=== PATIENT | male | born 2000 | race Caucasian/White ===

== ENCOUNTER 2024-02-12 16:08 | Outpatient (CLI) | payer OTHER, SELFPAY ==
--- NOTE | 2024-02-12 16:15 | XR_ITS ---
WS: [id number] XR hand RT 2V [id number] REASON FOR EXAM: ARTHRITIS FINDINGS: Old healed fracture at the base of the fifth metatarsal. No acute fracture or focal bone lesion. No periarticular bone erosion or periostitis. No periosteal reaction. Joint spaces in the right hand are intact and well preserved. XR/XR hand RT 2V [id number] IMPRESSION: Old healed fracture without significant deformity or posttraumatic arthritis. No other significant abnormality.
--- NOTE | 2024-02-12 16:15 | XR_ITS ---
WS: [id number] XR hand LT 2V [id number] REASON FOR EXAM: ARTHRITIS FINDINGS: No fracture or focal bone lesion. No periarticular erosions or periostitis. No periosteal reaction. Joint spaces of the left hand are intact and well preserved. No soft tissue abnormality. XR/XR hand LT 2V [id number] IMPRESSION: No significant abnormality.
== END 2024-02-12 16:09 | disposition home or self-care (01) ==
LOC: RAD 16:13
PROVIDERS: Family Provider General Practice; Visit Provider Chiropractor
DX: M19.041 Primary osteoarthritis, right hand (principal); M19.042 Primary osteoarthritis, left hand
CPT/HCPCS: 73120

== ENCOUNTER 2024-02-25 15:53 | Outpatient (CLI) | payer OTHER, SELFPAY ==
--- NOTE | 2024-02-25 16:03 | XRR_ITS ---
PROCEDURE INFORMATION: Exam: XR Lumbosacral Spine Exam date and time: 02/25/2024 4:11 PM Age: 23 years old Clinical indication: Low back pain; Additional info: Bilateral knee degenertive arthritis TECHNIQUE: Imaging protocol: Radiologic exam of the lumbosacral spine. Views: 2 or 3 views. COMPARISON: No relevant prior studies available. FINDINGS: Bones/joints: Slight loss of L4-L5 disc height with preservation of the remaining lumbar disc and vertebral body heights. Soft tissues: Unremarkable. XR/XR lumbar spine 2-3V* [id number] IMPRESSION: Unremarkable study
--- NOTE | 2024-02-25 16:05 | XRR_ITS ---
PROCEDURE INFORMATION: Exam: XR Right Knee Exam date and time: 02/25/2024 4:11 PM Age: 23 years old Clinical indication: Pain; Knee; Bilateral; Additional info: Bilateral knee degenerative arthritis TECHNIQUE: Imaging protocol: Radiologic exam of the right knee. Views: 3 views. COMPARISON: No relevant prior studies available. FINDINGS: Bones/joints: Normal. Soft tissues: Normal. XR/XR knee RT 3V* [id number] IMPRESSION: No acute findings.
--- NOTE | 2024-02-25 16:05 | XRR_ITS ---
PROCEDURE INFORMATION: Exam: XR Left Knee Exam date and time: 02/25/2024 4:11 PM Age: 23 years old Clinical indication: Pain; Knee; Bilateral; Additional info: Bilateral knee degenerative arthritis TECHNIQUE: Imaging protocol: Radiologic exam of the left knee. Views: 3 views. COMPARISON: No relevant prior studies available. FINDINGS: Bones/joints: Normal. Soft tissues: Normal. XR/XR knee LT 3V* [id number] IMPRESSION: No acute findings.
== END 2024-02-25 15:54 | disposition home or self-care (01) ==
LOC: RAD 15:57
PROVIDERS: Family Provider General Practice; Visit Provider Chiropractor
DX: M17.0 Bilateral primary osteoarthritis of knee (principal); M54.15 Radiculopathy, thoracolumbar region
CPT/HCPCS: 72100; 73562

== ENCOUNTER → 2024-08-06 15:17 | Outpatient (BNVA) | payer OTHER, SELFPAY | PROVIDERS: Family Provider General Practice; Visit Provider Student in an Organized Health Care Education/Training Program | DX: R20.2 Paresthesia of skin (principal); M79.601 Pain in right arm; M79.602 Pain in left arm; R29.898 Other symptoms and signs involving the musculoskeletal system | CPT/HCPCS: 99204 ==

== ENCOUNTER → 2024-09-23 08:37 | Outpatient (BNVA) | payer OTHER, SELFPAY | PROVIDERS: Family Provider General Practice; Referring Provider Student in an Organized Health Care Education/Training Program; Visit Provider Specialist | DX: R29.898 Other symptoms and signs involving the musculoskeletal system (principal); R20.2 Paresthesia of skin; M79.601 Pain in right arm; M79.602 Pain in left arm | CPT/HCPCS: 95911 ==

== ENCOUNTER 2024-12-30 17:29 | Emergency (ER) | payer OTHER, SELFPAY ==
--- OUTSIDE RECORDS SUMMARY | 2024-12-30 10:24 | XMS_ITS | Encounter Summary ---
Author Name [facility] Address [address] [place] [address] Care Team Providers Care Refractory Specialist Name Role Phone MARICEL BELL Primary Care Provider Unavail able Selected Encounter This section includes the information on record at [place] for the Encounter. Date/Time Encounter Type Encounter Description Reason Pro vider Source Dec 30, 2024 03:24 PM Outpatient Encounter [facility]ITY CARE CONSULT IHE Encounter Template Text not used by [place] Plan of Treatment: Future Appointments (+ 6 months) and Future Tests (+/- 45 days) The Plan of Treatment section includes future care activities for the patient from all [place] treatmentfacilities. This section includes future appointments and future orders which are active, pending or scheduled. Future Appointments This section includes appointments that were scheduled to occur 6 months from the date of the Encounter, up to a maximum of 20 appointments. The data comes from all [place] treatment facilities. Appointment Date/Time Appointment Type Appointme nt Facility Name Jun 25, 2025 08:30 AM AMBULATORY - MEDICINE [facility] Active, Pending, and Scheduled Orders This section includes a listing of several types of active, pending, and scheduled orders, including clinic medications orders, diagnostic test orders, procedure orders and consult orders; where the start date of the order is 45 days before the date of the Encounter or 45 days after the date of theEncounter. The data comes from all [place] treatment facilities. Test Date/Time Test Type Test Details Facility Name Dec 15, 2024 03:09 PM Consult Order COMM[facility]ITY CARE-CARDIOLOGY [id number] [facility] Dec 22, 2024 10:12 AM Consult Order COMMUNITY CARE-IMAGING MAGNETIC RESONANCE IMAGING-AUTO [id number] [facility] Dec 22, 2024 10:12 AM Consult Order COMMUNITY CARE-IMAGING MAGNETIC RESONANCE IMAGING-AUTO [id number] [facility] Lab Results: +/- 30 days of the encounter This section includes the Chemistry and Hematology Lab Results on record with [place] for the patient. Radiology Reports and Pathology Reports are provided separately, in subsequent sections. Lab Results This section contains the Chemistry/Hematology Results that were resulted 30 days before or 30 daysafter the date of the Encounter. Date/Time Source Result Type Result - Unit Interpretation Reference Range Specimen Type Comment Dec 15, 2024 03:27 PM [facility] COMPREHENSIVE METABOLIC PANEL PLASMA Specimen Type: PLASMA No comment entered. Ordering Provider: PATRICK BELL Report Released Date/Time: Dec 15, 2024 03:09 PM Reporting Lab: [place] [facility] [address] [place] [address] Performing Lab: [place] [facility] [address] [facility] [address] CREATININE 0.93 mg/dL 0.7-1.3 UREA NITROGEN 11 mg/dL 9-25 GLUCOSE 90 mg/dL 72-99 SODIUM 142 meq/L 136-145 POTASSIUM 4.2 meq/L 3.5-5 CHLORIDE 102 meq/L 98-107 CARBON DIOXIDE 27 meq/L 22-31 CALCIUM 9.6 mg/dL 8.4-10.4 PROTEIN 8.8 g/dL H 6-8.6 ALBUMIN 5.1 g/dL H 3.4-5 TOTAL BILIRUBIN 0.6 mg/dL 0.2-1.2 ALKALINE PHOSPHATASE 61 U/L 40-150 AST/SGOT 29 U/L 5-34 ALT/SGPT 22 U/L 8-40 EGFR (CKD-EPI 2020) 117 Dec 15, 2024 03:27 PM [facility] TSH (MA-PB) SERUM Specimen Typ e: SERUM No comment entered. Ordering Provider: MARICEL BELL Report Released Date/Time: Dec 15, 2024 03:15 PM Reporting Lab: [place] [facility] [address] [place] [address] Performing Lab: [place] [facility] [address] [place] [address] TSH 2.997 u[IU]/mL 0.47-5 Dec 15, 2024 03:27 PM [facility] B12 SERUM Specimen Type: SERUM No comment entered. Ordering Provider: MARICEL BELL Report Released Date/Time: Dec 15, 2024 03:15 PM Reporting Lab: [place] [facility] [address] [place] [address] Performing Lab: [place] [facility] [address] [place] [address] B12 281 pg/mL 213-816 Encounter Notes: All associated encounter notes This section contains the clinical notes associated to the Encounter. Date/Time Encounter Note(s) Provider Source Dec 30, 2024 03:24 PM LETTERS: LOCAL TITLE: COMMUNITY CARE-REFERRAL PB (AUTO-PRINT) STANDARD TITLE: LETTERS DATE OF NOTE: DEC 30, 2024@15:24:09 ENTRY DATE: DEC 30, 2024@15:24:09 AUTHOR: LUIS DANIELSON EXP COSIGNER: URGENCY: STATUS: COMPLETED Ankur Lomax [address] [place], [place] [address] Dear ANKUR LOMAX, Your [place] provider has referred you to a provider within the community for care. Your medical care for CARDIOLOGY has been authorized with the Community Care Provider listed below. DO NOT REPORT TO THE [facility] Provider info: An appointment has been scheduled for you on: Dec 26, 2024 03:23 PM Office Name: [facility] Address: [address] [place] [address] Address: [facility] Auth #: [id number] Referral Issue Date: 12/16/24 Expiration Date: 02/24/25 If you are unable to keep this appointment or the appointment is no longer needed, please contact the community provider above for notification/rescheduling and then call the [facility] [place] Community Care Office at [phone] Ext [phone]. If you need additional care/services not mentioned above, please contact your primary care provider for a new referral. Co-Payments: If you are required to pay a VA co-payment, you will be billed by the VA for each authorized visit that you attend. However, you are NOT REQUIRED to make co-payments to a Community Provider. Prescriptions: Your community provider may write a prescription related to the authorized care. If there is an immediate need for your prescriptions from your community care visit, you may be able to get up to a 14-day fill of your prescription at your own expense for the cost of the medication, and may seek reimbursement from the VA. If you require more than a 14-day supply or if the prescribed medication is not immediately needed, your community provider will send a prescription to a VA pharmacy so that the VA can provide you with your routine medication. In-network locations can be found at https://www.va.gov/find-lo cations/ Medical Devices: Your community provider may recommend that medical devices, adapted equipment, or other items be provided for the treatment or rehabilitation of your medical condition. Veterans are generally required to obtain these items through the Prosthetics and Sensory Aids Service (PSAS) in your referring facility. Emergency/Inpatient Services: You, your community provider, or your family must provide notification within 72hr or ER visit and/or admission by [phone]. Thank you for the opportunity to serve you and for your service to our great nation! LUIS Flores [facility] Care in the Community [address] [facility] [address] [place], [place] [address] LUIS DANIELSON [facility]
--- OUTSIDE RECORDS SUMMARY | 2024-12-30 17:34 | XMS_ITS | Continuity of Care Document ---
Author Name [facility] Organization [facility] Care Team Providers Care Drawing Hand Name Role Phone [facility] Unavailable Unavailable Problems Combined list of problems from Department of Defense and Veterans Affairs facilities. It does not include entries that were removed or entered in error. 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 Condition DoD Allergic Rhinitis ([facility] [id number]) Active Condition [facility] Cervicalgia Active Condition [facility] Depression ([facility] [id number]) Active Condition [facility] Exposure to potentially hazardous substance ([facility] [id number]) Active Condition Jun 25 5 Entered By: YOEL SCHULTZ Comment: Entered automatically through CHARLY Problem List documentation program [facility] Insomnia Active Condition [facility] Lumbar radiculopathy Active Condition [facility] Migraine Active Condition [facility] Sinusitis Active Condition [facility] Trigger finger of left hand Active Condition [facility] Trigger finger of right hand Active Condition [facility] Diagnosis: ICD-10-CM M54.2 Cervicalgia Active Diagnosis [facility] Diagnosis: ICD-10-CM F32.A Depression, unspecified Active Diagnosis [facility] Diagnosis: ICD-10-CM G43.909 Migraine, unsp, not intractable, without status migrainosus Active Diagnosis [facility] Medications Combined list of outpatient medications from Department of Defense and Veterans Affairs facilities.Medications provided include 1) outpatient medications from the last 15 months, and 2) patient-reported medications. Medication Details Route Status Patient Instructions Prescription Expires Prescription Number Last Dispense Date Ordering Provider Order Date Order Qty Source IBUPROFEN 800MG TAB TAKE ONE TABLET BY MOUTH THREE TIMES A DAY NEEDED FOR HEADACHE TAKE WITH FOOD. ORAL ACTIVE 06/27/2025 [id number] 5 Sheryl BELL R 2024 270 [facility] MELOXICAM (U/D) 15 MG ORAL TAB Take with food/mil k.Obtain advice for OTCs.Do not take if . 11/11/2024 [id number] 4 2023 30 22 Med Gp Pia ALLEN ([facility]) MIRTAZAPINE 15MG TAB TAKE ONE-HALF TABLET BY MOUTH AT BEDTIME FOR INSOMNIA ORAL DISCONT INUED BY PROVIDE R 06/25/2025 [id number] 5 Sheryl BELL R 2024 45 [facility] SUMAtriptan (U/D) 25 MG ORAL TAB Take or use exactly as directed . 11/11/2024 [id number] 4 2023 9 22 Med Gp Pia ALLEN ([facility]) SUMATRIPTAN SUCCINATE 100MG TAB TAKE ONE TABLET BY MOUTH ONE-TIME TAKE AT ONSET OF HEADACHE . MAY REPEAT AFTER 2 HOURS. NOT TO EXCEED 2 TABLETS IN 24 HOURS. ORAL ACTIVE 06/27/2025 [id number] 5 Sheryl BELL R 2024 27 [facility] Allergies, Adverse Reactions, Alerts Combined list of allergies from Department of Defense and Veterans Affairs facilities. It does not include entries that were removed or entered in error. Substance Category Reaction Severity Reaction type Status Date Reported Comments Source No Known Allergies Drug allergy (disorder) active 08/19/2022 DoD Immunizations Combined list of available immunizations from the Department of Defense and Veterans Affairs facilities. Immunization Series Date Given Administered By Site Reaction Lot Number CVX Code Drug [employer] [id number] Status Comments Source Influenza, injectable, quadrivalent, preservative free 1 2020 [id number] 150 [facility] (SEQ) complet ed Influenza , injectabl e, quadrival ent, preservat jossie free [facility] Human Papillomaviru s 9-valent vaccine 3 2019 [id number] 165 Merck (MSD) complet ed Human Papilloma virus 9-valent vaccine [facility] Influenza, injectable, quadrivalent, preservative free 2 11/13/ 2019 [id number] 150 [employer] (SEQ) complet ed Influenza , injectabl e, quadrival ent, preservat jossie free DoD Human Papillomaviru s 9-valent vaccine 2 2018 [id number] 165 Merck (MSD) complet ed Human Papilloma virus 9-valent vaccine DoD hepatitis A and hepatitis B vaccine 3 2018 [id number] [facility]) complet ed hepatitis A and hepatitis B vaccine DoD Human Papillomaviru s 9-valent vaccine 1 2018 [id number] 165 Merck (MSD) complet ed Human Papilloma virus 9-valent vaccine DoD varicella virus vaccine 1 2017 [id number] 21 Merck (MSD) complet ed varicella virus vaccine DoD hepatitis A and hepatitis B vaccine 1 2017 [id number] 104 [employer] ([facility]) complet ed hepatitis A and hepatitis B vaccine DoD varicella virus vaccine 1 2017 [id number] 21 Merck (MSD) complet ed varicella virus vaccine DoD hepatitis A and hepatitis B vaccine 1 2017 [id number] 104 [employer] ([facility]) complet ed hepatitis A and hepatitis B vaccine DoD Influenza, injectable, quadrivalent, preservative free 1 2017 [id number] [employer] (SEQ) comple t ed Influenza , injectabl e, quadrival ent, preservat jossie free DoD poliovirus vaccine, inactivated 1 2017 [id number] Sanofi Pasteur ([facility]) complet ed polioviru s vaccine, inactivat ed DoD meningococcal polysaccharid e (groups A, C, Y and W-135) diphtheria toxoid conjugate vaccine (MCV4P) 1 2017 [id number] 114 Sanofi Pasteur ([facility]) complet ed meningoco ccal polysacch aride (groups A, C, Y and W-135) diphtheri a toxoid conjugate vaccine (MCV4P) DoD tetanus toxoid, reduced diphtheria toxoid, and acellular pertu is vaccine, adsorbed 1 2017 [id number] 115 [employer] ([facility]) complet ed tetanus toxoid, reduced diphtheri a toxoid, and acellular pertussis vaccine, adsorbed DoD Adenovirus, type 4 and type 7, live, oral 1 2017 [id number] 143 [facility] ([facility]) complet ed Adenoviru s, type 4 and type 7, live, oral DoD measles virus vaccine 0 2017 05 () Not Given measles virus vaccine DoD rubella virus vaccine 0 2017 06 () Not Given rubella virus vaccine [facility] mumps virus vaccine 0 2017 07 () Not Given mumps virus vaccine [facility] MENINGOCOCCAL MCV4P 1 2016 114 complet ed HISTORICA L INFORMATI ON - FROM OTHER REGISTRY, [facility] INFLUENZA, LIVE, TRIVALENT, INTRANASAL 1 2008 111 complet ed HISTORICA L INFORMATI ON - FROM OTHER REGISTRY, [facility] DTAP 5 2004 20 complet ed HISTORICA L INFORMATI ON - FROM OTHER REGISTRY, [facility] IPV 4 2004 10 complet ed HISTORICA L INFORMATI ON - FROM OTHER REGISTRY, [facility] MMR 2 2004 03 complet ed HISTORICA L INFORMATI ON - FROM OTHER REGISTRY, [facility] DTAP 4 1999 20 complet ed HISTORICA L INFORMATI ON - FROM OTHER REGISTRY, [facility] HIB (PRP-T) 4 1999 48 complet ed HISTORICA L INFORMATI ON - FROM OTHER REGISTRY, [facility] IPV 3 1999 10 complet ed HISTORICA L INFORMATI ON - FROM OTHER REGISTRY, [facility] MMR 1 1999 03 complet ed HISTORICA L INFORMATI ON - FROM OTHER REGISTRY, [facility] DTAP 3 1999 20 complet ed HISTORICA L INFORMATI ON - FROM OTHER [facility] HEP B, UNSPECIFIED FORMULATION 3 1999 45 complet ed HISTORICA L INFORMATI ON - FROM OTHER [facility] HIB (PRP-T) 3 1999 48 complet ed HISTORICA L INFORMATI ON - FROM OTHER REGISTRY, [facility] DTAP 2 1999 20 complet ed HISTORICA L INFORMATI ON - FROM OTHER [facility] HIB (PRP-T) 2 1999 48 complet ed HISTORICA L INFORMATI ON - FROM OTHER REGISTRY, [facility] DIVISIO N IPV 2 1999 10 complet ed HISTORICA L INFORMATI ON - FROM OTHER REGISTRY, [facility] DTAP 1 1998 20 complet ed HISTORICA L INFORMATI ON - FROM OTHER REGISTRY, [facility] HEP B, UNSPECIFIED FORMULATION 2 1998 45 complet ed HISTORICA L INFORMATI ON - FROM OTHER REGISTRY, [facility] HIB (PRP-T) 1 1998 48 complet ed HISTORICA L INFORMATI ON - FROM OTHER REGISTRY, [facility] IPV 1 1998 10 complet ed HISTORICA L INFORMATI ON - FROM OTHER REGISTRY, [facility] HEP B, UNSPECIFIED FORMULATION 1 1998 45 complet ed HISTORICA L INFORMATI ON - FROM OTHER REGISTRY, [facility] N Results Combined list of recent chemistry, hematology and other laboratory results from Department of Defense and Veterans Affairs, ranging from 15 months to all on record, depending upon the facility. Order Name Results Value Reference Range Date Interpretation Specimen Comments Source COMPREHENS JOSSIE METABOLIC PANEL CREATININE [MASS/VOLUM E] IN SERUM OR PLASMA 0.93 mg/dL 0.7 - 1.3 12/15 Specimen Type: PLASMA No comment entered. Ordering Provider: Sheryl BELL Report Released Date/Time : Dec 15, 2024 03:09 PM Reporting Lab: [place] [facility] [address] [place] [address] Performin g Lab: [place] [facility] [address] [place] [address] 8 [facility] COMPREHENS JSOSIE METABOLIC PANEL UREA NITROGEN [MASS/VOLUM E] IN SERUM OR PLASMA 11 mg/dL 9 - 12/15 Specimen Type: PLASMA No comment entered. Ordering Provider: Sheryl BELL Report Released Date/Time : Dec 15, 2024 03:09 PM Reporting Lab: [place] [facility] [address] [place] [address] Performin g Lab: [place] [facility] [address] [place] [address] 8 [facility] COMPREHENS JOSSIE METABOLIC PANEL GLUCOSE [MASS/VOLUM E] IN SERUM OR PLASMA 90 mg/dL 72 - 99 12/15 Specimen Type: PLASMA No comment entered. Ordering Provider: Sheryl BELL Report Released Date/Time : Dec 15, 2024 03:09 PM Reporting Lab: [place] [facility] [address] [place] [address] Performin g Lab: [place] [facility] [address] [place] [address] [facility] COMPREHENS JOSSIE METABOLIC PANEL SODIUM [MOLES/VOLU ME] IN SERUM OR PLASMA 142 meq/L 136 - 145 12/15 Specimen Type: PLASMA No comment entered. Ordering Provider: Sheryl BELL Report Released Date/Time : Dec 15, 2024 03:09 PM Reporting Lab: [place] [facility] [address] [place] [address] 8 Performin g Lab: [place] [facility] [address] [place] [address] [facility] COMPREHENS JOSSIE METABOLIC PANEL POTASSIUM [MOLES/VOLU ME] IN SERUM OR PLASMA 4.2 meq/L 3.5 - 5 12/15 Specimen Type: PLASMA No comment entered. Ordering Provider: Sheryl BELL R Report Released Date/Time : Dec 15, 2024 03:09 PM Reporting Lab: [place] [facility] [address] [place] [address] Performin g Lab: [place] [facility] [address] [place] [address] [facility] COMPREHENS JOSSIE METABOLIC PANEL CHLORIDE [MOLES/VOLU ME] IN SERUM OR PLASMA 102 meq/L 98 - 107 12/15 Specimen Type: PLASMA No comment entered. Ordering Provider: Sheryl BELL Report Released Date/Time : Dec 15, 2024 03:09 PM Reporting Lab: [place] [facility] [address] [place] [address] 8 Performin g Lab: [place] [facility] [address] [place] [address] [facility] COMPREHENS JOSSIE METABOLIC PANEL CARBON DIOXIDE, TOTAL [MOLES/VOLU ME] IN SERUM OR PLASMA 27 meq/L 22 - 31 12/15 Specimen Type: PLASMA No comment entered. Ordering Provider: Sheryl BELL R Report Released Date/Time : Dec 15, 2024 03:09 PM Reporting Lab: [place] [facility] [address] [place] [address] Performin g Lab: [place] [facility] [address] [place] [address] 8 [facility] COMPREHENS JOSSIE METABOLIC PANEL CALCIUM [MASS/VOLUM E] IN SERUM OR PLASMA 9.6 mg/dL 8.4 - 10.4 12/15 Specimen Type: PLASMA No comment entered. Ordering Provider: Sheryl BELL Report Released Date/Time : Dec 15, 2024 03:09 PM Reporting Lab: [place] [facility] [address] [place] [address] 8 Performin g Lab: [place] [facility] [address] [place] [address] [facility] COMPREHENS JOSSIE METABOLIC PANEL PROTEIN [MASS/VOLUM E] IN SERUM OR PLASMA 8.8 g/dL 6 - 8.6 12/15 H Specimen Type: PLASMA No comment entered. Ordering Provider: Sheryl BELL R Report Released Date/Time : Dec 15, 2024 03:09 PM Reporting Lab: [place] [facility] [address] [place] [address] 8 Performin g Lab: [place] [facility] [address] [place] [address] 8 [facility] COMPREHENS JOSSIE METABOLIC PANEL ALBUMIN [MASS/VOLUM E] IN SERUM OR PLASMA 5.1 g/dL 3.4 - 5 12/15 H Specimen Type: PLASMA No comment entered. Ordering Provider: Sheryl EBLL Report Released Date/Time : Dec 15, 2024 03:09 PM Reporting Lab: [place] [facility] [address] [place] [address] Performin g Lab: [place] [facility] [address] [place] [address] 8 [facility] COMPREHENS JOSSIE METABOLIC PANEL BILIRUBIN.T OTAL [MASS/VOLUM E] IN SERUM OR PLASMA 0.6 mg/dL 0.2 - 1.2 12/15 Specimen Type: PLASMA No comment entered. Ordering Provider: Shreyl BELL R Report Released Date/Time : Dec 15, 2024 03:09 PM Reporting Lab: [place] [facility] [address] [place] [address] Performin g Lab: [place] [facility] [address] [place] [address] 8 [facility] COMPREHENS JOSSIE METABOLIC PANEL ALKALINE PHOSPHATASE [ENZYMATIC ACTIVITY/VO LUME] IN SERUM OR PLASMA 61 U/L 40 - 150 12/15 Specimen Type: PLASMA No comment entered. Ordering Provider: Sheryl BELL R Report Released Date/Time : Dec 15, 2024 03:09 PM Reporting Lab: [place] [facility] [address] [place] [address] Performin g Lab: [place] [facility] [address] [place] [address] [facility] COMPREHENS JOSSIE METABOLIC PANEL ASPARTATE AMINOTRANSF ERASE [ENZYMATIC ACTIVITY/VO LUME] IN SERUM OR PLASMA 29 U/L 5 - 34 12/15 Specimen Type: PLASMA No comment entered. Ordering Provider: Sheryl BELL R Report Released Date/Time : Dec 15, 2024 03:09 PM Reporting Lab: [place] [facility] [address] [place] [address] 8 Performin g Lab: [place] [facility] [address] [place] [address] 8 [facility] COMPREHENS JOSSIE METABOLIC PANEL ALANINE AMINOTRANSF ERASE [ENZYMATIC ACTIVITY/VO LUME] IN SERUM OR PLASMA 22 U/L 8 - 40 12/15 Specimen Type: PLASMA No comment entered. Ordering Provider: Sheryl BELL R Report Released Date/Time : Dec 15, 2024 03:09 PM Reporting Lab: [place] [facility] [address] [place] [address] 8 Performin g Lab: [place] [facility] [address] [place] [address] [facility] COMPREHENS JOSSIE METABOLIC PANEL GLOMERULAR FILTRATION RATE/1.73 SQ M.PREDICTED [VOLUME RATE/AREA] IN SERUM, PLASMA OR BLOOD BY CREATININE- BASED FORMULA (CKD-EPI 2020) 117 12/15 Specimen Type: PLASMA No comment entered. Ordering Provider: Sheryl BELL R Report Released Date/Time : Dec 15, 2024 03:09 PM Reporting Lab: [place] [facility] [address] [place] [address] Performin g Lab: [place] [facility] [address] [place] [address] [facility] TSH (MA-PB) THYROTROPIN [UNITS/VOLU ME] IN SERUM OR PLASMA 2.997 u[IU]/mL 0.47 - 5 12/15 Specimen Type: SERUM No comment entered. Ordering Provider: Sheryl BELL R Report Released Date/Time : Dec 15, 2024 03:15 PM Reporting Lab: [place] [facility] [address] [place] [address] Performin g Lab: [place] [facility] [address] [place] [address] [facility] B12 COBALAMIN (VITAMIN B12) [MASS/VOLUM E] IN SERUM OR PLASMA 281 pg/mL 213 - 816 12/15 Specimen Type: SERUM No comment entered. Ordering Provider: Sheryl BELL Report Released Date/Time : Dec 15, 2024 03:15 PM Reporting Lab: [place] [facility] [address] [place] [address] Performin g Lab: [place] [facility] [address] [place] [address] [facility] CHOLESTERO L PANEL (PB) CHOLESTEROL [MASS/VOLUM E] IN SERUM OR PLASMA 229 mg/dL 0 - 200 06/24 H Specimen Type: PLASMA No comment entered. Ordering Provider: Sheryl BELL R Report Released Date/Time : Jun 24, 2024 02:30 PM Reporting Lab: [place] [facility] [address] [place] [address] Performin g Lab: [place] [facility] [address] [place] [address] [facility] CHOLESTERO L PANEL (PB) TRIGLYCERID E [MASS/VOLUM E] IN SERUM OR PLASMA 233 mg/dL 0 - 150 06/24 H Specimen Type: PLASMA No comment entered. Ordering Provider: Sheryl BELL R Report Released Date/Time : Jun 24, 2024 02:30 PM Reporting Lab: [place] [facility] [address] [place] [address] 8 Performin g Lab: [place] [facility] [address] [place] [address] [facility] CHOLESTERO L PANEL (PB) CHOLESTEROL IN LDL [MASS/VOLUM E] IN SERUM OR PLASMA BY CALCULATION 126.4 mg/dL 06/24 Specimen Type: PLASMA No comment entered. Ordering Provider: Sheryl BELL R Report Released Date/Time : Jun 24, 2024 02:30 PM Reporting Lab: [place] [facility] [address] [place] [address] 8 Performin g Lab: [place] [facility] [address] [place] [address] [facility] CHOLESTERO L PANEL (PB) CHOLESTEROL IN HDL [MASS/VOLUM E] IN SERUM OR PLASMA 56.0 mg/dL 40 06/24 H Specimen Type: PLASMA No comment entered. Ordering Provider: Sheryl BELL R Report Released Date/Time : Jun 24, 2024 02:30 PM Reporting Lab: [place] [facility] [address] [place] [address] Performin g Lab: [place] [facility] [address] [place] [address] [facility] CHOLESTERO L PANEL (PB) CHOLESTEROL IN HDL/CHOLEST MICHAEL.TOTAL [MASS RATIO] IN SERUM OR PLASMA 24.5 25 06/24 Specimen Type: PLASMA No comment entered. Ordering Provider: Sheryl BELL R Report Released Date/Time : Jun 24, 2024 02:30 PM Reporting Lab: [place] [facility] [address] [place] [address] Performin g Lab: [place] [facility] [address] [place] [address] [facility] COMPREHENS JOSSIE METABOLIC PANEL CREATININE [MASS/VOLUM E] IN SERUM OR PLASMA 0.79 mg/dL 0.7 - 1.3 06/24 Specimen Type: PLASMA No comment entered. Ordering Provider: Sheryl BELL R Report Released Date/Time : Jun 24, 2024 02:30 PM Reporting Lab: [place] [facility] [address] [place] [address] 8 Performin g Lab: [place] [facility] [address] [place] [address] 8 [facility] COMPREHENS JOSSIE METABOLIC PANEL UREA NITROGEN [MASS/VOLUM E] IN SERUM OR PLASMA 13 mg/dL 9 - 25 06/24 Specimen Type: PLASMA No comment entered. Ordering Provider: Sheryl BELL R Report Released Date/Time : Jun 24, 2024 02:30 PM Reporting Lab: [place] [facility] [address] [place] [address] 8 Performin g Lab: [place] [facility] [address] [place] [address] [facility] COMPREHENS JOSSIE METABOLIC PANEL GLUCOSE [MASS/VOLUM E] IN SERUM OR PLASMA 90 mg/dL 72 - 99 06/24 Specimen Type: PLASMA No comment entered. Ordering Provider: Sheryl BELL R Report Released Date/Time : Jun 24, 2024 02:30 PM Reporting Lab: [place] [facility] [address] [place] [address] Performin g Lab: [place] [facility] [address] [place] [address] [facility] COMPREHENS JOSSIE METABOLIC PANEL SODIUM [MOLES/VOLU ME] IN SERUM OR PLASMA 138 meq/L 136 - 145 06/24 Specimen Type: PLASMA No comment entered. Ordering Provider: Sheryl BELL R Report Released Date/Time : Jun 24, 2024 02:30 PM Reporting Lab: [place] [facility] [address] [place] [address] 8 Performin g Lab: [place] [facility] [address] [place] [address] [facility] COMPREHENS JOSSIE METABOLIC PANEL POTASSIUM [MOLES/VOLU ME] IN SERUM OR PLASMA 4.1 meq/L 3.5 - 5 06/24 Specimen Type: PLASMA No comment entered. Ordering Provider: Sheryl BELL R Report Released Date/Time : Jun 24, 2024 02:30 PM Reporting Lab: [place] [facility] [address] [place] [address] Performin g Lab: [place] [facility] [address] [place] [address] 8 [facility] COMPREHENS JOSSIE METABOLIC PANEL CHLORIDE [MOLES/VOLU ME] IN SERUM OR PLASMA 101 meq/L 98 - 107 06/24 Specimen Type: PLASMA No comment entered. Ordering Provider: Sheryl BELL R Report Released Date/Time : Jun 24, 2024 02:30 PM Reporting Lab: [place] [facility] [address] [place] [address] 8 Performin g Lab: [place] [facility] [address] [place] [address] 8 [facility] COMPREHENS JOSSIE METABOLIC PANEL CARBON DIOXIDE, TOTAL [MOLES/VOLU ME] IN SERUM OR PLASMA 27 meq/L 22 - 31 06/24 Specimen Type: PLASMA No comment entered. Ordering Provider: Sheryl BELL R Report Released Date/Time : Jun 24, 2024 02:30 PM Reporting Lab: [place] [facility] [address] [place] [address] 8 Performin g Lab: [place] [facility] [address] [place] [address] 8 [facility] COMPREHENS JOSSIE METABOLIC PANEL CALCIUM [MASS/VOLUM E] IN SERUM OR PLASMA 9.7 mg/dL 8.4 - 10.4 06/24 Specimen Type: PLASMA No comment entered. Ordering Provider: Sheryl BELL R Report Released Date/Time : Jun 24, 2024 02:30 PM Reporting Lab: [place] [facility] [address] [place] [address] Performin g Lab: [place] [facility] [address] [place] [address] [facility] COMPREHENS JOSSIE METABOLIC PANEL PROTEIN [MASS/VOLUM E] IN SERUM OR PLASMA 8.4 g/dL 6 - 8.6 06/24 Specimen Type: PLASMA No comment entered. Ordering Provider: Sheryl BELL Report Released Date/Time : Jun 24, 2024 02:30 PM Reporting Lab: [place] [facility] [address] [place] [address] Performin g Lab: [place] [facility] [address] [place] [address] 8 [facility] COMPREHENS JOSSIE METABOLIC PANEL ALBUMIN [MASS/VOLUM E] IN SERUM OR PLASMA 5.0 g/dL 3.4 - 5 06/24 Specimen Type: PLASMA No comment entered. Ordering Provider: Sheryl BELL Report Released Date/Time : Jun 24, 2024 02:30 PM Reporting Lab: [place] [facility] [address] [place] [address] 8 Performin g Lab: [place] [facility] [address] [place] [address] 8 [facility] COMPREHENS JOSSIE METABOLIC PANEL BILIRUBIN.T OTAL [MASS/VOLUM E] IN SERUM OR PLASMA 0.4 mg/dL 0.2 - 1.2 06/24 Specimen Type: PLASMA No comment entered. Ordering Provider: Sheryl BELL R Report Released Date/Time : Jun 24, 2024 02:30 PM Reporting Lab: [place] [facility] [address] [place] [address] 8 Performin g Lab: [place] [facility] [address] [place] [address] [facility] COMPREHENS JOSSIE METABOLIC PANEL ALKALINE PHOSPHATASE [ENZYMATIC ACTIVITY/VO LUME] IN SERUM OR PLASMA 58 U/L 40 - 150 06/24 Specimen Type: PLASMA No comment entered. Ordering Provider: BELL,C ATHERINE R Report Released Date/Time : Jun 24, 2024 02:30 PM Reporting Lab: [place] [facility] [address] [place] [address] 8 [facility]formin [facility] [place]: [place] [facility] [address] [place] [address] 8 [facility] COMPREHENS JOSSIE METABOLIC PANEL ASPARTATE AMINOTRANSF ERASE [ENZYMATIC ACTIVITY/VO LUME] IN SERUM OR PLASMA 20 U/L 5 - 34 06/24 Specimen Type: PLASMA No comment entered. Ordering Provider: Sheryl BELL R Report Released Date/Time : Jun 24, 2024 02:30 PM Reporting Lab: [place] [facility] [address] [place] [address] 8 Performin g Lab: [place] [facility] [address] [place] [address] 8 [facility] COMPREHENS JOSSIE METABOLIC PANEL ALANINE AMINOTRANSF ERASE [ENZYMATIC ACTIVITY/VO LUME] IN SERUM OR PLASMA 17 U/L 8 - 40 06/24 Specimen Type: PLASMA No comment entered. Ordering Provider: Sheryl BELL R Report Released Date/Time : Jun 24, 2024 02:30 PM Reporting Lab: [place] [facility] [address] [place] [address] 8 Performin g Lab: [place] [facility] [address] [place] [address] 8 [facility] COMPREHENS JOSSIE METABOLIC PANEL GLOMERULAR FILTRATION RATE/1.73 SQ M.PREDICTED [VOLUME RATE/AREA] IN SERUM, PLASMA OR BLOOD BY CREATININE- BASED FORMULA (CKD-EPI 2020) 126 06/24 Specimen Type: PLASMA No comment entered. Ordering Provider: Sheryl BELL R Report Released Date/Time : Jun 24, 2024 02:30 PM Reporting Lab: [place] [facility] [address] [place] [address] 8 Performin g Lab: [place] [facility] [address] [place] [address] 8 [facility] TSH (MA-PB) THYROTROPIN [UNITS/VOLU ME] IN SERUM OR PLASMA 2.693 u[IU]/mL 0.47 - 5 06/24 Specimen Type: SERUM No comment entered. Ordering Provider: Sheryl BELL Report Released Date/Time : Jun 24, 2024 02:30 PM Reporting Lab: [place] [facility] [address] [place] [address] 8 Performin g Lab: [place] [facility] [address] [place] [address] 8 [facility] URINALYSIS (STL-PB) COLOR OF URINE Colorless 06/24 Specimen Type: URINE No comment entered. Ordering Provider: Sheryl BELL Report Released Date/Time : Jun 24, 2024 02:30 PM Reporting Lab: [place] [facility] [address] [place] [address] 8 Performin g Lab: [place] [facility] [address] [place] [address] 8 [facility] URINALYSIS (STL-PB) BILIRUBIN.T OTAL [PRESENCE] IN URINE BY TEST STRIP NEGATIVEm g/dL 06/24 Specimen Type: URINE No comment entered. Ordering Provider: Sheryl BELL Report Released Date/Time : Jun 24, 2024 02:30 PM Reporting Lab: [place] [facility] [address] [place] [address] 8 Performin g Lab: [place] [facility] [address] [place] [address] 8 [facility] URINALYSIS (STL-PB) PH OF URINE BY TEST STRIP 7.0 5.0 - 8.0 06/24 Specimen Type: URINE No comment entered. Ordering Provider: Sheryl BELL Report Released Date/Time : Jun 24, 2024 02:30 PM Reporting Lab: [place] [facility] [address] [place] [address] 8 Performin g Lab: [place] [facility] [address] [place] [address] 8 [facility] URINALYSIS (STL-PB) APPEARANCE OF URINE CLEAR 06/24 Specimen Type: URINE No comment entered. Ordering Provider: MARICEL BELL Report Released Date/Time : Jun 24, 2024 02:30 PM Reporting Lab: [place] [facility] [address] [place] [address] 8 Performin g Lab: [place] [facility] [address] [place] [address] 8 [facility] URINALYSIS (STL-PB) NITRITE [PRESENCE] IN URINE BY TEST STRIP NEGATIVEm g/dL 06/24 Specimen Type: URINE No comment entered. Ordering Provider: Sheryl BELL Report Released Date/Time : Jun 24, 2024 02:30 PM Reporting Lab: [place] [facility] [address] [place] [address] 8 Performin g Lab: [place] [facility] [address] [place] [address] 8 [facility] URINALYSIS (STL-PB) GLUCOSE [MASS/VOLUM E] IN URINE BY TEST STRIP NORMALmg/ dL 06/24 Specimen Type: URINE No comment entered. Ordering Provider: Sheryl BELL Report Released Date/Time : Jun 24, 2024 02:30 PM Reporting Lab: [place] [facility] [address] [place] [address] 8 Performin g Lab: [place] [facility] [address] [place] [address] 8 [facility] URINALYSIS (STL-PB) PROTEIN [MASS/VOLUM E] IN URINE BY TEST STRIP NEGATIVEm g/dL 06/24 Specimen Type: URINE No comment entered. Ordering Provider: Sheryl BELL Report Released Date/Time : Jun 24, 2024 02:30 PM Reporting Lab: [place] [facility] [address] [place] [address] 8 Performin g Lab: [place] [facility] [address] [place] [address] 8 [facility] URINALYSIS (STL-PB) URN.UROBILI NOGEN NORMALmg/ dL 06/24 Specimen Type: URINE No comment entered. Ordering Provider: Sheryl BELL Report Released Date/Time : Jun 24, 2024 02:30 PM Reporting Lab: [place] [facility] [address] [place] [address] 8 Performin g Lab: [place] [facility] [address] [place] [address] 8 [facility] URINALYSIS (STL-PB) HEMOGLOBIN [MASS/VOLUM E] IN URINE BY TEST STRIP NEGATIVEm g/dL 06/24 Specimen Type: URINE No comment entered. Ordering Provider: Sheryl BELL Report Released Date/Time : Jun 24, 2024 02:30 PM Reporting Lab: [place] [facility] [address] [place] [address] 8 Performin g Lab: [place] [facility] [address] [place] [address] 8 [facility] URINALYSIS (STL-PB) KETONES [MASS/VOLUM E] IN URINE BY TEST STRIP NEGATIVEm g/dL 06/24 Specimen Type: URINE No comment entered. Ordering Provider: Sheryl BELL Report Released Date/Time : Jun 24, 2024 02:30 PM Reporting Lab: [place] [facility] [address] [place] [address] 8 Performin g Lab: [place] [facility] [address] [place] [address] 8 [facility] URINALYSIS (STL-PB) URN.LEUK.ES T. NEGATIVE 06/24 Specimen Type: URINE No comment entered. Ordering Provider: Sheryl BELL Report Released Date/Time : Jun 24, 2024 02:30 PM Reporting Lab: [place] [facility] [address] [place] [address] 8 Performin g Lab: [place] [facility] [address] [place] [address] 8 [facility] URINALYSIS (STL-PB) SPECIFIC GRAVITY OF URINE 1.009 1.005 - 1.029 06/24 Specimen Type: URINE No comment entered. Ordering Provider: Sheryl BELL Report Released Date/Time : Jun 24, 2024 02:30 PM Reporting Lab: [place] [facility] [address] [place] [address] 8 Performin g Lab: [place] [facility] [address] [place] [address] 8 [facility] VITAMIN D, 25-HYDROXY 25-HYDROXYV ITAMIN D3 [MASS/VOLUM E] IN SERUM OR PLASMA 20.5 ng/mL 30 - 96 06/24 L Specimen Type: SERUM No comment entered. Ordering Provider: Sheryl BELL R Report Released Date/Time : Jun 24, 2024 02:30 PM Reporting Lab: [place] [facility] [address] [place] [address] 8 Performin g Lab: [place] [facility] [address] [place] [phone] 8 [facility] CBC LEUKOCYTES [#/VOLUME] IN BLOOD BY AUTOMATED COUNT 6.4 10*3/uL 3.6 - 11.2 06/24 Specimen Type: BLOOD No comment entered. Ordering Provider: Sheryl BELL R Report Released Date/Time : Jun 24, 2024 02:30 PM Reporting Lab: [place] [facility] [address] [place] [address] 8 Performin g Lab: [place] [facility] [address] [place] [address] 8 [facility] CBC ERYTHROCYTE S [#/VOLUME] IN BLOOD BY AUTOMATED COUNT 5.04 10*6/uL 4.10 - 5.70 06/24 Specimen Type: BLOOD No comment entered. Ordering Provider: Sheryl BELL R Report Released Date/Time : Jun 24, 2024 02:30 PM Reporting Lab: [place] [facility] [address] [place] [address] 8 Performin g Lab: [place] [facility] [address] [place] [address] 8 [facility] CBC HEMOGLOBIN [MASS/VOLUM E] IN BLOOD 15.8 g/dL 13.1 - 16.8 06/24 Specimen Type: BLOOD No comment entered. Ordering Provider: Sheryl BELL R Report Released Date/Time : Jun 24, 2024 02:30 PM Reporting Lab: [place] [facility] [address] [place] [address] 8 Performin g Lab: [place] [facility] [address] [place] [address] 8 [facility] CBC HEMATOCRIT [VOLUME FRACTION] OF BLOOD 46.8 38.2 - 48.4 06/24 Specimen Type: BLOOD No comment entered. Ordering Provider: Sheryl BELL R Report Released Date/Time : Jun 24, 2024 02:30 PM Reporting Lab: [place] [facility] [address] [place] [address] 8 Performin g Lab: [place] [facility] [address] [place] [address] 8 [facility] CBC MCV [ENTITIC VOLUME] BY AUTOMATED COUNT 92.9 fL 80.0 - 100.0 06/24 Specimen Type: BLOOD No comment entered. Ordering Provider: Sheryl BELL Report Released Date/Time : Jun 24, 2024 02:30 PM Reporting Lab: [place] [facility] [address] [place] [address] 8 Performin g Lab: [place] [facility] [address] [place] [address] 8 [facility] CBC MCH [ENTITIC MASS] BY AUTOMATED COUNT 31.3 pg 27.0 - 34.0 06/24 Specimen Type: BLOOD No comment entered. Ordering Provider: Sheryl BELL R Report Released Date/Time : Jun 24, 2024 02:30 PM Reporting Lab: [place] [facility] [address] [place] [address] 8 Performin g Lab: [place] [facility] [address] [place] [address] 8 [facility] CBC MCHC [MASS/VOLUM E] BY AUTOMATED COUNT 33.8 g/dL 33.0 - 36.0 06/24 Specimen Type: BLOOD No comment entered. Ordering Provider: Sheryl BELL R Report Released Date/Time : Jun 24, 2024 02:30 PM Reporting Lab: [place] [facility] [address] [place] [phone] 8 Performin g Lab: [place] [facility] [address] [place] [address] 8 [facility] CBC PLATELETS [#/VOLUME] IN BLOOD BY AUTOMATED COUNT 290 10*3/uL 150 - 400 06/24 Specimen Type: BLOOD No comment entered. Ordering Provider: Sheryl BELL R Report Released Date/Time : Jun 24, 2024 02:30 PM Reporting Lab: [place] [facility] [address] [place] [address] 8 Performin g Lab: [place] [facility] [address] [place] [address] 8 [facility] CBC PLATELET MEAN VOLUME [ENTITIC VOLUME] IN BLOOD BY AUTOMATED COUNT 10.2 fL 7.5 - 11.2 06/24 Specimen Type: BLOOD No comment entered. Ordering Provider: Sheryl BELL R Report Released Date/Time : Jun 24, 2024 02:30 PM Reporting Lab: [place] [facility] [address] [place] [address] 8 Performin g Lab: [place] [facility] [address] [place] [address] 8 [facility] CBC ERYTHROCYTE DISTRIBUTIO N WIDTH [RATIO] BY AUTOMATED COUNT <11.8 11.8 - 15.1 06/24 Specimen Type: BLOOD No comment entered. Ordering Provider: Sheryl BELL R Report Released Date/Time : Jun 24, 2024 02:30 PM Reporting Lab: [place] [facility] [address] [place] [address] 8 Performin g Lab: [place] [facility] [address] [place] [address] 8 [facility] CBC LYMPHOCYTES /100 LEUKOCYTES IN BLOOD BY AUTOMATED COUNT 28.9 06/24 Specimen Type: BLOOD No comment entered. Ordering Provider: Sheryl BELL R Report Released Date/Time : Jun 24, 2024 02:30 PM Reporting Lab: [place] [facility] [address] [place] [address] 8 Performin g Lab: [place] [facility] [address] [place] [address] 8 [facility] CBC MONOCYTES/1 00 LEUKOCYTES IN BLOOD BY AUTOMATED COUNT 12.4 06/24 Specimen Type: BLOOD No comment entered. Ordering Provider: Sheryl BELL Report Released Date/Time : Jun 24, 2024 02:30 PM Reporting Lab: [place] [facility] [address] [place] [address] 8 Performin g Lab: [place] [facility] [address] [place] [address] 8 [facility] CBC NEUTROPHILS /100 LEUKOCYTES IN BLOOD BY AUTOMATED COUNT 56.4 06/24 Specimen Type: BLOOD No comment entered. Ordering Provider: Sheryl BELL Report Released Date/Time : Jun 24, 2024 02:30 PM Reporting Lab: [place] [facility] [address] [place] [address] 8 Performin g Lab: [place] [facility] [address] [place] [phone] [facility] CBC EOSINOPHILS /100 LEUKOCYTES IN BLOOD BY AUTOMATED COUNT 1.3 06/24 Specimen Type: BLOOD No comment entered. Ordering Provider: Sheryl BELL Report Released Date/Time : Jun 24, 2024 02:30 PM Reporting Lab: [place] [facility] [address] [place] [address] 8 Performin g Lab: [place] [facility] [address] [place] [phone] 8 [facility] CBC BASOPHILS/1 00 LEUKOCYTES IN BLOOD BY AUTOMATED COUNT 0.8 06/24 Specimen Type: BLOOD No comment entered. Ordering Provider: Sheryl BELL R Report Released Date/Time : Jun 24, 2024 02:30 PM Reporting Lab: [place] [facility] [address] [place] [phone] Performin g Lab: [place] [facility] [address] [place] [phone] [facility] CBC LYMPHOCYTES [#/VOLUME] IN BLOOD BY AUTOMATED COUNT 1.84 10*3/uL 0.77 - 4.50 06/24 Specimen Type: BLOOD No comment entered. Ordering Provider: Sheryl BELL R Report Released Date/Time : Jun 24, 2024 02:30 PM Reporting Lab: [place] [facility] [address] [place] [address] 8 Performin g Lab: [place] [facility] [address] [place] [address] 8 [facility] CBC MONOCYTES [#/VOLUME] IN BLOOD BY AUTOMATED COUNT 0.79 10*3/uL 0.19 - 0.8 06/24 Specimen Type: BLOOD No comment entered. Ordering Provider: Sheryl BELL Report Released Date/Time : Jun 24, 2024 02:30 PM Reporting Lab: [place] [facility] [address] [place] [address] 8 Performin g Lab: [place] [facility] [address] [place] [address] 8 [facility] CBC NEUTROPHILS [#/VOLUME] IN BLOOD BY AUTOMATED COUNT 3.60 10*3/uL 2.10 - 8.00 06/24 Specimen Type: BLOOD No comment entered. Ordering Provider: Sheryl BELL R Report Released Date/Time : Jun 24, 2024 02:30 PM Reporting Lab: [place] [facility] [address] [place] [address] 8 Performin g Lab: [place] [facility] [address] [place] [phone] 8 [facility] CBC EOSINOPHILS [#/VOLUME] IN BLOOD BY AUTOMATED COUNT 0.08 10*3/uL 0.00 - 0.60 06/24 Specimen Type: BLOOD No comment entered. Ordering Provider: Sheryl BELL R Report Released Date/Time : Jun 24, 2024 02:30 PM Reporting Lab: [place] [facility] [address] [place] [address] 8 Performin g Lab: [place] [facility] [address] [place] [address] 8 [facility] CBC BASOPHILS [#/VOLUME] IN BLOOD BY AUTOMATED COUNT 0.05 10*3/uL 0.00 - 0.20 06/24 Specimen Type: BLOOD No comment entered. Ordering Provider: BELL,C ATHERINE R Report Released Date/Time : Jun 24, 2024 02:30 PM Reporting Lab: [place] [facility] [address] [place] [address] 8 Performin g Lab: [place] [facility] [address] [place] [address] 8 [facility] CBC IMMATURE GRANULOCYTE S/100 LEUKOCYTES IN BLOOD BY AUTOMATED COUNT 0.2 06/24 Specimen Type: BLOOD No comment entered. Ordering Provider: Sheryl BELL R Report Released Date/Time : Jun 24, 2024 02:30 PM Reporting Lab: [place] [facility] [address] [place] [address] 8 Performin g Lab: [place] [facility] [address] [place] [address] 8 [facility] CBC IMMATURE GRANULOCYTE S [#/VOLUME] IN BLOOD BY AUTOMATED COUNT 0.01 10*3/uL 0.00 - 0.05 06/24 Specimen Type: BLOOD No comment entered. Ordering Provider: Sheryl BELL R Report Released Date/Time : Jun 24, 2024 02:30 PM Reporting Lab: [place] [facility] [address] [place] [address] 8 Performin g Lab: [place] [facility] [address] [place] [address] 8 [facility] HGA1C HEMOGLOBIN A1C/HEMOGLO BIN.TOTAL IN BLOOD 5.2 4.0 - 6.0 06/24 Specimen Type: BLOOD No comment entered. Ordering Provider: Sheryl BELL R Report Released Date/Time : Jun 24, 2024 02:30 PM Reporting Lab: [place] [facility] [address] [place] [address] 8 Performin g Lab: [place] [facility] [address] [place] [address] 8 [facility] Vital Signs Combined list of inpatient and outpatient Vital Signs from Department of Defense and Veterans Affairs, ranging from 12 months to all on record, depending upon the facility. Vital Sign Value Date Comments Source SYSTOLIC BLOOD PRESSURE 130 12/15/2024 14:40:37 [facility] DIASTOLIC BLOOD PRESSURE 77 12/15/2024 14:40:37 [facility] PULSE OXIMETRY 98 % 12/15/2024 14:40:37 [facility] WEIGHT 171.9 12/15/2024 14:40:37 [facility] BMI 25 kg/m2 12/15/2024 14:40:37 [facility] TEMPERATURE 98.3 12/15/2024 14:40:37 [facility] PULSE 82 12/15/2024 14:40:37 [facility] RESPIRATION 18 12/15/2024 14:40:37 [facility] SYSTOLIC BLOOD PRESSURE 120 09/23/2024 10:35:00 [facility] DIASTOLIC BLOOD PRESSURE 78 09/23/2024 10:35:00 [facility] PULSE OXIMETRY 98 09/23/2024 10:35:00 [facility] PULSE 66 09/23/2024 10:35:00 [facility] SYSTOLIC BLOOD PRESSURE 125 06/24/2024 13:48:00 [facility] DIASTOLIC BLOOD PRESSURE 81 06/24/2024 13:48:00 [facility] WEIGHT 170.9 06/24/2024 13:48:00 [facility] BMI 25 kg/m2 06/24/2024 13:48:00 [facility] PAIN 4 06/24/2024 13:48:00 [facility] HEIGHT 70.0 06/24/2024 13:48:00 [facility] TEMPERATURE 98.1 06/24/2024 13:48:00 [facility] PULSE 71 06/24/2024 13:48:00 [facility] RESPIRATION 18 06/24/2024 13:48:00 [facility] Encounters Combined list of: 1) Encounters from [facility] facilities going backup to the last 18 months, not all [facility] inpatient encounters are included; 2) Encounters from the Department of Defense facilities going backup to 280 months. Location Location Details Encounter Type Encounter Number Reason For Visit Attending Provider ADM Date DC Date Status Disposition [place] [address](Hea ring Conservat ion, BMT) OUTPATIENT [id number] LLOYD GROSS 03/07 Released w/o Limitations [facility] [place] [address](H earing Conserv ation, BMT) [facility] [place] [address](Hea ring Conservat ion, BMT) OUTPATIENT [id number] SUSIE HARRISEL Summer 03/08 Released w/o Limitations [facility] [place] [address](H earing Conserv ation, BMT) [place] [address] OUTPATIENT [id number] Notes Entered by: WLIMA HAMPTON 13 Mar 2018 1046 ------- ------- ------- ------- -- LATE ENTRY Strep Prophyl axis JOCELYNN HAMPTON 03/13 Released w/o Limitations [facility] [place] [address] [place], [place](NASP Occupatio nal Health) OUTPATIENT [id number] [facility] ESTEE PATEL 06/25 Released w/o Limitations [place]NASP Occup[facility] [place] Health) [place]NASP Hearing Conservat ion) OUTPATIENT [id number] EDUCATI ON and SUSHIL FARRELL 10/02 Released w/o Limitations [place]NASP Hearing Conserv ation) [facility] [employer] [facility] [employer] [employer](B ase [employer] al [employer]) OUTPATIENT [id number] FTAC OHA-ASM MARS GUIDRY 10/16 Released w/o Limitations [facility] [employer] [facility] [employer] [place] [employer] (Base Operati onal Medical [employer]) [employer] [employer](Summer [facility] Team A) OUTPATIENT [id number] ftac ALEX THIBODEAUX 10/18 Released w/o Limitations [facility] [employer] [facility] [employer] [place] [employer] (Nicole ware [facility] Team A) [employer] [place] [employer](F light Medicine [employer] MD[facility]) OUTPATIENT [id number] Masking hearing / MARS GUIDRY 10/22 Released w/o Limitations [employer], [place] [employer] (Flight Medicin e 22 MDG) [employer](Aud iology) OUTPATIENT [id number] Notes Entered by: Zita LIU 13 Nov 2018 1455 ------- ------- ------- ------- -- Review of records /dispos ition for hearing conserv ation program (HCP) NICOLE LIU 11/13 Released w/o Limitations [employer](A udiolog y) [employer] [place] [employer](F light Medicine 22 MDG) TELE CONSULT [id number] Notes Entered by: ORAL TABOR 29 Nov 2018 0857 ------- ------- ------- ------- -- NETWORK RESULTS -RAD- MARS GUIDRY 11/29 [employer], [place] [employer] (Flight Medicin e 22 MDG) [employer] [place] [employer](B ase Operation al Medical Cell) OUTPATIENT [id number] OHA-WALLACE LEE 10/06 Released w/o Limitations [employer], [place] [employer] (Base Operati onal Medical Cell) [employer] [place] [employer](F BNA Ge ) OUTPATIENT [id number] Notes Entered by: MILES DOYLE 07 Oct 2019 0736 ------- ------- ------- ------- -- ANNUAL AUDIOGR AM KAYLA DOYLE 10/06 Released w/o Limitations [employer] [employer] (FBNA [place] [employer]) [employer] [place] [employer](B ase Operation al Medical Cell) OUTPATIENT [id number] [facility]-417 [phone] JOAN GARCIA 10/07 Released w/o Limitations [employer] [employer] (Base Operati onal Medical Cell) [employer] [place] [employer](Summer Critical access hospital Team A) OUTPATIENT [id number] phaq DOMINGO MORLEY 10/16 Released w/o Limitations [employer] [employer] (Sarahdon ware [facility] Team A) [employer] [place] [employer](Summer Critical access hospital Team A) TELE CONSULT [id number] Notes Entered by: JEANINE MORLEY 23 Sep 2020 0759 ------- ------- ------- ------- -- GRAEME Macias 09/23 Released to [employer] [employer] (Nicole chaz [facility] Team A) [facility] Outpatient Encounter [id number] 06/[address] [facility] Outpatient Encounter [id number] RUFUS BELL 06/24 [facility] OFFICE O/P NEW MOD 45 MIN [id number] Diagnos is: ICD-10- CM G43.909 Migrain e, unsp, not intract able, without status migrain osus RUFUS BELL R 06/24 [facility] Outpatient Encounter [id number] 07/[address] [facility] Outpatient Encounter [id number] 07/18 [facility] Outpatient Encounter [id number] 07/22 [facility] Outpatient Encounter [id number] 08/06 [facility] Outpatient Encounter [id number] 08/06 [facility] Outpatient Encounter [id number] 08/12 [facility] Outpatient Encounter [id number] 08/[address] [facility] Outpatient Encounter [id number] 09/[address] [facility] Outpatient Encounter [id number] 09/23 [facility] OFFICE O/P EST MOD 30 MIN [id number] Diagnos is: ICD-10- CM F32.A Depress ion, unspeci fied RUFUS BELL R 09/23 [facility] Outpatient Encounter [id number] 09/[address] [facility] Outpatient Encounter [id number] 12/[address] [facility] Outpatient Encounter [id number] ARABELLARUFUS THERINE R 12/15 [facility] OFFICE O/P EST MOD 30 MIN [id number] Diagnos is: ICD-10- CM M54.2 Cervica lgia RUFUS BELL THERINE R 12/15 [facility] En[facility] [id number] 12/15 [facility] Outpatient Encounter [id number] 12/30 [facility] Procedures Combined list of: 1) Procedures from Department of [facility] Affairs facilities going back up to thelast 18 months, not all [place] non-surgical procedures are included; 2) All procedures from the Department of Defense facilities. Procedure Procedure Type Code Date Perfomer Comments Sourc e DISTORTION PRODUCT EVOKED OTOACOUS EMISSIONS;LIMITED EVALUATION (TO CONFIRM THE PRESENCE/ABSENCE OF HEARING DISORDER,3-6 FREQUENCIES)/TRANSIE NT EVOKED OTOACOUS EMISSIONS,W INTERPRETATION &REPORT 9 [facility] PHYS/OTH QUALIFIED HEALTH MULTICUT LINE OPERATOR QUALIFIED,EDUCATION, TRAIN,LICENSURE/REGU LATION (WHEN APPLICABLE) EDUC SER RENDERED TO PATS IN A GRP SETTING (EG,,OBESITY ,OR DIABETIC INSTRUCT) 9 [facility] ADMINISTRATION OF PATIENT-FOCUSED HEALTH RISK ASSESSMENT INSTRUMENT (EG, HEALTH HAZARD APPRAISAL) WITH SCORING AND DOCUMENTATION, PER STANDARDIZED INSTRUMENT 0 DoD BRIEF COMM TECH-BASE SERV,E.G. VIRT CHK-IN,BY PHYS/OTH QUAL HCP,RPT E&M SERV,PROV TO EST PT,NOT ORIG FRM REL E/M SERV PROV W/IN PREV 7DAY NOR LEAD TO E/M SRV/PX W/IN NEXT 24HR/SOON MIMI; 5-10 MIN DISC 0 DoD PURE TONE AUDIOMETRY (THRESHOLD), AUTOMATED; AIR ONLY 0 DoD TOBACCO USE CESSATION INTERVENTION, COUNSELING (COPD, CAP, CAD, ASTHMA) (DM) (PV) 0 DoD PURE TONE AUDIOMETRY (THRESHOLD); AIR ONLY 9 [facility] ADMINISTRATION OF PATIENT-FOCUSED HEALTH RISK ASSESSMENT INSTRUMENT (EG, HEALTH HAZARD APPRAISAL) WITH SCORING AND DOCUMENTATION, PER STANDARDIZED INSTRUMENT 9 Barak Evoked Otoacoustic Fatimah ions Limited Evoked Otoacoustic Emissions Limited 21198 9 NICOLE LIU Tympanometry With Reflex Threshold Measurements Tympanometry With Reflex Threshold Measurements 91339 9 NICOLE LIU Comprehensive Audiometry Comprehensive Audiometry 94872 9 NICOLE LIU Threshold Audiogram (Pure Tone) Threshold Audiogram (Pure Tone) 36398 9 MARS GUIDRY Threshold Audiogram (Pure Tone) Threshold Audiogram (Pure Tone) 27285 9 MARS GUIDRY Screening Test Of Visual Acuity, Quantitative, Bilateral Screening Test Of Visual Acuity, Quantitative, Bilateral [address] Supervised Injection Intramuscular Antibiotic Supervised Injection Intramuscular Antibiotic 02784 8 JOCELYNN HAMPTON Threshold Audiogram (Pure Tone) Threshold Audiogram (Pure Tone) 23852 8 WALLACE HARRIS Tympanometry With Reflex Threshold Measurements Tympanometry With Reflex Threshold Measurements 70968 8 WALLACE HARRIS Threshold Audiogram (Pure Tone) Threshold Audiogram (Pure Tone) [address]Supervised Services Provision Of Educational Supplies -Supervised Services Provision Of Educational Supplies [address]Supervised Group Educational Services -Supervised Group Educational Services 25752 SUSHIL KELLER Threshold Audiogram (Pure Tone) Automated Threshold Audiogram (Pure Tone) Automated 0208T KAYLA DOYLE Threshold Audiogram (Pure Tone) Threshold Audiogram (Pure Tone) 02360 DOMINGO NEWMAN Intervention And Counseling On Ce ation Of Tobacco Use Intervention And Counseling On Cessation Of Tobacco Use 4000F DOMINGO NEWMAN Brief communication technology-based service, e.g. virtual check-in, by a physician or other qualified health care profmaricruz garcia who can report evaluation and management services, provided to an established patient, not originating from a related E/M service provided within the previous 7 days nor leading to an E/M service or procedure within the next 24 hours or soonest available appointment; 5-10 minutes of medical discu JOAN Camargo [facility] Social History Combined list of available smoking, tobacco, and other social history from Department of Defense and Veterans Affairs facilities. Social History Type Response Date Comment Sour e Tobacco smoking status NHIS VA-TOBACCO USE COPY CHASER NO 06/24/2024 [facility] History of tobacco use VA-TOBACCO USE MED NO 06/24/2024 [facility] This section is an empty social history section. [facility] Plan of Care List of future care activities from Department of Veterans Affairs facilities. Additional future care activities may be listed in the Assessment and Plan section. Date/Time Care Activity Care Activity Detail Facili ty 06/25/2025 AMBULATORY - MEDICINE AMBULATORY - MEDICI NE [facility]
[2024-12-30 17:46] VITALS: BP 142/76; PULSE 103; RESP 16; TEMP 36.7; O2SAT 95
--- NOTE | 2024-12-30 18:13 | ECG_ITS ---
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 Measurements Intervals [place] Rate: 70 P: 61 WA: 164 QRS: -35 QRSD: 106 T: 26 QT: 352 QTc: 381 Interpretive Statements SINUS RHYTHM WITH SINUS ARRHYTHMIA LEFT AXIS DEVIATION [QRS AXIS < -30] S1-S2-S3 PATTERN, CONSISTENT WITH PULMONARY DISEASE, RVH, OR NORMAL VARIANT INCOMPLETE RIGHT BUNDLE BRANCH BLOCK [90+ ms QRS DURATION, TERMINAL R IN V1/V2, 40+ ms S IN I/aVL/V4/V5/V6] No previous ECG available for comparison Electronically Signed On 01-01-2025 10:25:35 CDT by Bj Flores M.D. [email or web address]
--- NOTE | 2024-12-30 18:13 | XRR_ITS ---
PROCEDURE INFORMATION: Exam: XR Chest Exam date and time: 12/30/2024 6:16 PM Age: 24 years old Clinical indication: Other: Heat exhaustion, syncope; Additional info: Cp TECHNIQUE: Imaging protocol: Radiologic exam of the chest. Views: 1 view. COMPARISON: No relevant prior studies available. FINDINGS: Lungs: Unremarkable. No consolidation. Pleural spaces: Unremarkable. No pleural effusion. No pneumothorax. Heart/Mediastinum: Unremarkable. No cardiomegaly. Bones/joints: Unremarkable. XR/XR chest 1V portable [id number] IMPRESSION: No acute findings.
[2024-12-30 18:15] LABS: Hematocrit 50.1 % (37-53); Hemoglobin 17.70 g/dL (11.27-16.99); Mean Corpuscular HGB Conc 35.3 g/dL (30-55); Mean Corpuscular Hemoglobin 32.1 pg (27-33); Mean Corpuscular Volume 90.9 fl (82-101); Nucleated Red Blood Cells % 0 %; Platelet Count 335 10^3/cmm (157-399); Red Blood Count 5.51 10^6/uL (3.85-5.65); White Blood Count 13.96 10^3/uL (3.29-11.43)
--- NOTE | 2024-12-30 18:17 | W.ED.ABDPA2 ---
HPI - Abdominal Pain General: Chief Complaint: Abdominal Pain Stated Complaint: sudden abd pain (multiple times unconcious) Time Seen by Provider: 12/30/24 17:58 Source: patient Mode of arrival: ambulatory Limitations: no limitations History of Present Illness: 24-year-old male who states that he been working outside he was working on a roof he started having sudden sharp pains felt like his abdomen is bawling up his left lower quadrant states he did get off the roof and had 2 syncopal events he is very diaphoretic and nauseous. He states he is also having some sharp chest pains. He states he is feeling improved now that he is out of the heat he denies any headache. Associated Symptoms: Reports nausea; Denies chills, diarrhea, fever(s) and vomiting Related Data Home Medications ?Medication ?Instructions ?Recorded ?Confirmed ibuprofen 200 mg tablet 200 mg PO Q6H PRN 08/06/24 09/23/24 lidocaine 1.8 % topical patch 1 patch topical DAILY 08/06/24 09/23/24 Allergies Allergy/AdvReac Type Severity Reaction Status Date / Time No Known Allergies Allergy Unverified 08/06/24 15:34 Review of Systems Const: Denies: fever(s), chills, body aches or change in appetite ENMT: Denies: throat pain or dental pain Card: Denies: chest pain Resp: Denies: dyspnea GI: Reports: abdominal pain and nausea; Denies: vomiting or diarrhea Musc: Denies: neck pain or back pain Skin/Breast: Denies: rash Neuro: Denies: headache(s) PFS ED PFSH: Social History Smoking and tobacco/nicotine status: current every day tobacco/nicotine user (chewing tobacco) Marital status: Physical Exam Const: COMMON NORMALS: no acute distress, patient oriented x3 and healthy appearing HENMT: COMMON NORMALS: normocephalic and atraumatic HEAD & SCALP: normocephalic and atraumatic Eye: COMMON NORMALS: Equal, round and reactive pupils present and EOMs intact bilaterally PUPIL: Yes Equal, round and reactive pupils present Neck/C-Spine: COMMON NORMALS: full ROM and supple Chest: COMMONS NORMALS: normal inspection of the chest Resp: COMMON NORMALS: normal respiratory effort Cardio: COMMON NORMALS: regular rate, regular rhythm and No murmurs present (Cardio) RATE: regular rate RHYTHM: regular rhythm GI: COMMON NORMALS: Normal to inspection, nondistended, normoactive bowel sounds present, Soft to palpation, non-tender and no masses PALPATION: Yes Soft to palpation Extremity: COMMON NORMALS: normal to inspection and full ROM Neuro: COMMON NORMALS: patient oriented x3, moves all extremities and no focal motor deficits Psych: COMMON NORMALS: mental status grossly normal, Normal thought process present and cooperative THOUGHT PROCESS: Normal thought process present Skin: COMMON NORMALS: no rashes or lesions noted and no wounds GENERAL SKIN EXAM: no rashes or lesions noted Course Vital Signs: Vital signs: Vital Signs Temperature 98.0 F 12/30/24 17:46 Pulse Rate 89 12/30/24 18:55 Respiratory Rate 16 12/30/24 18:24 Blood Pressure 123/72 12/30/24 18:55 Pulse Oximetry 100 12/30/24 18:55 Oxygen Delivery Me thod Room Air 12/30/24 18:55 MDM - Abdominal Pain Medical Decision Making Patient presents here with heat exhaustion he feels much improved here after IV fluids he stable for discharge he has follow-up with PCP return if worsening he understands agrees to plan Medical Records I reviewed the patient's medical records. Lab Data I reviewed the patient's lab results. 12/30/24 17:57 12/30/24 17:57 Labs/Radiology: Radiology Impressions Chest X-Ray 12/30/24 18:13 IMPRESSION: No acute findings. Laboratory Results WBC 13.96 10^3/uL (3.29-11.43) H 12/30/24 17:57 RBC 5.51 10^6/uL (3.85-5.65) 12/30/24 17:57 Hgb 17.70 g/dL (11.27-16.99) H 12/30/24 17:57 Hct 50.1 % (37-53) 12/30/24 17:57 MCV 90.9 fl (82-101) 12/30/24 17:57 MCH 32.1 pg (27-33) 12/30/24 17:57 MCHC 35.3 g/dL (30-55) 12/30/24 17:57 RDW 12.0 % (12.1-15.1) L 12/30/24 17:57 Plt Count 335 10^3/cmm (157-399) 12/30/24 17:57 MPV 9.6 fL (7.4-10.4) 12/30/24 17:57 Neut % (Auto) 73.9 % 12/30/24 17:57 Lymph % (Auto) 12.6 % 12/30/24 17:57 [place] % (Auto) 11.6 % 12/30/24 17:57 Eos % (Auto) 1.3 % 12/30/24 17:57 Baso % (Auto) 0.2 % 12/30/24 17:57 Neut # (Auto) 10.31 10^3/uL (1.8-7.7) H 12/30/24 17:57 Lymph # (Auto) 1.8 10^3/uL (0.8-4.8) 12/30/24 17:57 [place] # (Auto) 1.6 10^3/uL (0.2-0.9) H 12/30/24 17:57 Eos # (Auto) 0.2 10^3/uL (0.0-0.8) 12/30/24 17:57 Baso # (Auto) 0.0 10^3/uL (0.0-0.1) 12/30/24 17:57 Nucleated RBC % (auto) 0 % 12/30/24 17:57 Nucleated RBCs # 0.0 /100WBC 12/30/24 17:57 Sodium 139 mmol/L (136-145) 12/30/24 17:57 Potassium 4.1 mmol/L (3.5-5.1) 12/30/24 17:57 Chloride 95 mmol/L (98-107) L 12/30/24 17:57 Carbon Dioxide 26 mmol/L (22-29) 12/30/24 17:57 Anion Gap 22.1 (5-19) H 12/30/24 17:57 BUN 14 mg/dL (6-20) 12/30/24 17:57 Creatinine 1.6 mg/dL (0.7-1.2) H 12/30/24 17:57 GFR Calculation 52.9 mL/min (90-130) L 12/30/24 17:57 Glucose 87 mg/dL (65-115) 12/30/24 17:57 Calculated Osmolality 288 mOsm/kg (285-295) 12/30/24 17:57 Calcium 11.3 mg/dL (8.5-10.5) H 12/30/24 17:57 Total Bilirubin 0.7 mg/dL (0.15-1.2) 12/30/24 17:57 AST 23 U/L (0-40) 12/30/24 17:57 ALT 22 U/L (0-41) 12/30/24 17:57 Alkaline Phosphatase 85 U/L (40-130) 12/30/24 17:57 Troponin T Baseline < 6 ng/L (0-15) 12/30/24 17:57 Total Protein 9.6 g/dL (6.6-8.7) H 12/30/24 17:57 Albumin 5.5 g/dL (3.5-5.2) H 12/30/24 17:57 Globulin 4.1 g/dL (1.3-4.6) 12/30/24 17:57 Lipase 33 U/L (13-60) 12/30/24 17:57 All radiology interpretation(s) finalized by discharge EKG Data EKG 1: I personally reviewed and interpreted this EKG as follows: EKG interpretation date: 12/30/24 EKG interpretation time: 18:27 Interpretation: nsr hr [address] elevation qrs 106 qtc 373 Discharge Plan Discharge Patient Disposition: Home Clinical Impression: Abdominal pain, Heat exhaustion Condition: Stable Prescriptions: No Action ibuprofen 200 mg tablet 200 mg PO Q6H PRN lidocaine 1.8 % adhesive patch,medicated 1 patch topical DAILY Rx Instructions: leave on most painful area for up to 12 hrs Discharge Orders: Discharge ED (Routine); Ordered 12/30/24 Ordered By: Mehdi Talbot Referrals: Marry Villalobos MD [Primary Care Provider, Family Practice] Discharge Diet: Advance as tolerated Discharge Activity: Resume usual activity Patient Instructions: Heat Exhaustion (ED) Print Language: Kazakh Coding Level of Care Code ED Soldering Machine Feeder for Chg Sixto
[2024-12-30] MEDS: ondansetron 2 mg/ML SDV 2 mL 4 MG IVP (18:23)
[2024-12-30 18:24] VITALS: BP 120/83; PULSE 82; RESP 16; O2SAT 99
[2024-12-30 18:26] LABS: Alanine Aminotransferase 22 U/L (0-41); Albumin Level 5.5 g/dL (3.5-5.2); Alkaline Phosphatase 85 U/L (40-130); Anion Gap 22.1 (5-19); Aspartate Amino Transferase 23 U/L (0-40); Blood Urea Nitrogen 14 mg/dL (6-20); Calcium 11.3 mg/dL (8.5-10.5); Carbon Dioxide 26 mmol/L (22-29); Chloride 95 mmol/L (98-107); Creatinine Clr Calc Pharmacy 75.4204; Globulin 4.1 g/dL (1.3-4.6); Glucose 87 mg/dL (65-115); Lipase 33 U/L (13-60); Osmolality Calculated 288 mOsm/kg (285-295); Potassium 4.1 mmol/L (3.5-5.1); Sodium 139 mmol/L (136-145); Total Protein 9.6 g/dL (6.6-8.7)
[2024-12-30 18:42] LABS: Troponin(5th) Baseline < 6 ng/L (0-15)
[2024-12-30 18:55] VITALS: BP 123/72; PULSE 89; O2SAT 100
[2024-12-30 19:21] VITALS: BP 111/77; PULSE 74; O2SAT 100
== END 2024-12-30 19:55 | disposition home or self-care (01) ==
PROVIDERS: Emergency Provider Emergency Medicine; PCP Family Medicine
DX: R10.9 Unspecified abdominal pain (principal); T67.5XXA Heat exhaustion, unspecified, initial encounter; X30.XXXA Exposure to excessive natural heat, initial encounter; F17.220 Nicotine dependence, chewing tobacco, uncomplicated
CPT/HCPCS: 36415; 71045; 80053; 83690; 84484; 85025; 93005; 96361; 96374; 99285; J2405; J7030

== ENCOUNTER 2025-01-01 07:56 | Outpatient (CLI) | payer OTHER, SELFPAY ==
--- NOTE | 2025-01-01 08:02 | MR_ITS ---
WS: [id number] MRI CERVICAL SPINE NONCONTRAST HISTORY: CERVICALGIA COMPARISON: None available. Technique: Multiplanar, multisequence noncontrast imaging of the cervical spine. Normal cervical alignment with no compression fracture or significant disc space narrowing. Signal within the cervical cord is normal. Visualized posterior fossa is unremarkable. Craniocervical junction, C1 and C2 relationship, odontoid process and soft tissues are normal. C2-C3: Normal. C3-C4: Normal. C4-C5: Very tiny central disc protrusion. Small foraminal osteophytes. No stenosis. C5-C6: Minimal disc bulging and small foraminal osteophytes. Very mild RIGHT foraminal stenosis. C6-C7: Mild annular disc bulging and small foraminal osteophytes. No stenosis. C7-T1: Normal. Paraspinal soft tissue are normal. MR/MR cervical spin wo con* [id number] IMPRESSION: 1. No central or significant foraminal stenosis. 2. No large disc protrusions. 3. Tiny central disc protrusion at C4-5 and foraminal osteophytes. No stenosis . 4. Very mild RIGHT foraminal stenosis at C5-6 due to foraminal osteophytes.
--- NOTE | 2025-01-01 08:05 | MR_ITS ---
WS: [id number] MRI LUMBAR SPINE NONCONTRAST HISTORY: LOW BACK PAIN COMPARISON: None available. TECHNIQUE: Sagittal and axial multisequence imaging is submitted. Normal lumbar alignment with no compression fractures or marrow edema. Disc spaces and vertebral body heights are well-preserved. Conus terminates normally at L1-2 disc level. T10-11: Small RIGHT paracentral disc protrusion does slightly contact the ventral cord. . L1-L2: Normal. L2-L3: Mild annular disc bulging with ligamentum flavum hypertrophy. No stenosis. L3-L4: Mild annular disc bulging and facet arthritis. No stenosis. L4-L5: Mild annular disc bulge with a central disc protrusion. There is disc contacting but not displacing the LEFT traversing L5 nerve root. Mild central, bilateral subarticular recess and foraminal stenosis. Facet joint arthritis and ligamentum flavum hypertrophy. L5-S1: Mild annular disc bulging and facet arthritis. Very minimal foraminal narrowing. Paravertebral soft tissues are negative. MR/MR lumbar spine wo con* [id number] IMPRESSION: 1. L4-5: Central disc protrusion with minimal contact on the LEFT traversing L 5 nerve root. Otherwise there is mild disc encroachment upon the central canal, subarticular recesses and foramen resulting in mild stenosis. 2. Mild facet joint arthritis from L3-4 to L5-S1. Minimal foraminal narrowing at L5-S1.
== END 2025-01-01 07:57 | disposition home or self-care (01) ==
LOC: RAD 07:57
PROVIDERS: PCP Family Medicine; Visit Provider Nurse Practitioner
DX: M51.26 Other intervertebral disc displacement, lumbar region (principal); M25.78 Osteophyte, vertebrae; M50.221 Other cervical disc displacement at C4-C5 level
CPT/HCPCS: 72141; 72148